=== PATIENT | female | born 1995 | race Caucasian/White ===

== ENCOUNTER 2019-02-26 18:44 | Emergency (ER) | payer BC, OTHER ==
[~2019-02-26] VITALS: Ht 167.6 cm; Wt 85.2 kg
[2019-02-26 19:07] VITALS: Ht 167.6 cm; Wt 85.2 kg
[2019-02-26] MEDS ORDERED: ONDANSETRON 4 MG INJ IV STA (20:49)
[2019-02-26] MEDS ORDERED: SOD CHLORIDE 0.9% 1,000 ML IV STA (20:49)
[2019-02-27] MEDS ORDERED: CEPH-443 PO (00:17)
[2019-02-27] MEDS ORDERED: ONDA4TAB14 PO (00:17)
[2019-02-27 00:28] VITALS: BP 122/81; PULSE 86; RESP 18
--- NOTE | 2019-02-28 00:39 | ERD ---
ER Documentation Chief Complaint Chief Complaint nausea x 1 mo HPI 23 year old G0 F presents to the ED complaining of 1 month of intermittent nausea. No vomiting. She took three home tests which were negative but believes she may be and is requesting a serum beta hcg. She reports intermittent vaginal spotting. LN Dec 16, 2018. Also reports suprapubic and midepigastric abdominal cramping. Has been having urinary frequency and urgency. No back pain, flank pain, fevers or chills. No abnormal vaginal spotting. No other complaints. ROS All systems reviewed and are negative except as per history of present illness. Medications Home Meds Active Scripts Ondansetron (Ondansetron Odt) 4 Mg Tab.rapdis, 4 MG PO Q6H PRN for NAUSEA AND/OR VOMITING, #10 TAB Prov:CORBINIGRIKIANINOCENCIO-C 02/27/19 Cephalexin* (Keflex*) 500 Mg Capsule, 500 MG PO BID for 7 Days, CAP Prov:DISHIGRIKIANINOCENCIO-C 02/27/19 Reported Medications [None] No Conflict Check 04/03/11 Allergies Allergies: Coded Allergies: No Known Allergy (Verified Allergy, Unknown, 04/03/11) PMhx/Soc Medical and Surgical Hx: pt denies Medical Hx, pt denies Surgical Hx History of Surgery: No Anesthesia Reaction: No Hx Neurological Disorder: No Hx Respiratory Disorders: No Hx Cardiac Disorders: No Hx Psychiatric Problems: No Hx Miscellaneous Medical Probl: No Hx Alcohol Use: No Hx Substance Use: No Hx Tobacco Use: No Smoking Status: Never smoker Physical Exam Vitals Vital Signs Date Temp Pulse Resp B/P (MAP) Pulse Ox O2 O2 Flow FiO2 Time Delivery Rate 02/27/19 97.3 86 18 122/81 99 Room Air 00:28 (95) 02/26/19 98.4 100 20 147/93 98 19:07 (111) Physical Exam Const: No acute distress Head: Atraumatic Eyes: Normal Conjunctiva ENT: Normal External Ears, Nose and Mouth. Neck: Full range of motion. No meningismus. Resp: Clear to auscultation bilaterally Cardio: Regular rate and rhythm, no murmurs Abd: Soft, non tender, non distended. No rebound/guarding. Negative Mcburney's point tenderness. Normal bowel sounds. Skin: No petechiae or rashes Back: No midline or flank tenderness Ext: No cyanosis, or edema Neur: Awake and alert Psych: Normal Mood and Affect Result Diagram: 02/26/19212502/26/192125 Results 24 hrs Laboratory Tests Test 02/26/19 21:26 White Blood Count 12.6 10^3/ul Red Blood Count 5.26 10^6/ul Hemoglobin 15.2 g/dl Hematocrit 45.5 % Mean Corpuscular Volume 86.5 fl Mean Corpuscular Hemoglobin 28.9 pg Mean Corpuscular Hemoglobin Concent 33.4 g/dl Red Cell Distribution Width 12.6 % Platelet Count 294 10^3/UL Mean Platelet Volume 11.2 fl Immature Granulocytes % 0.600 % Neutrophils % 57.1 % Lymphocytes % 31.4 % Monocytes % 5.6 % Eosinophils % 4.7 % Basophils % 0.6 % Nucleated Red Blood Cells % 0.0 /100WBC Immature Granulocytes # 0.080 10^3/ul Neutrophils # 7.2 10^3/ul Lymphocytes # 3.9 10^3/ul Monocytes # 0.7 10^3/ul Eosinophils # 0.6 10^3/ul Basophils # 0.1 10^3/ul Nucleated Red Blood Cells # 0.0 10^3/ul Urine Color YELLOW Urine Clarity SLIGHTLY CLOUDY Urine pH 6.0 Urine Specific Opal 1.024 Urine Ketones NEGATIVE mg/dL Urine Nitrite NEGATIVE mg/dL Urine Bilirubin NEGATIVE mg/dL Urine Urobilinogen 2+ mg/dL Urine Leukocyte Esterase TRACE Cynthia/ul Urine Microscopic RBC 3 /HPF Urine Microscopic WBC 1 /HPF Urine Squamous Epithelial Cells FEW /HPF Urine Mucus FEW /HPF Urine Hemoglobin NEGATIVE mg/dL Urine Glucose NEGATIVE mg/dL Urine Total Protein NEGATIVE mg/dl Sodium Level 138 mmol/L Potassium Level 3.9 mmol/L Chloride Level 100 mmol/L Carbon Dioxide Level 27 mmol/L Anion Gap 11 Blood Urea Nitrogen 14 mg/dl Creatinine 0.55 mg/dl Est Glomerular Filtrat Rate mL/min > 60 mL/min Glucose Level 101 mg/dl Calcium Level 9.3 mg/dl Total Bilirubin 0.6 mg/dl Direct Bilirubin 0.00 mg/dl Indirect Bilirubin 0.6 mg/dl Aspartate Amino Transf (AST/SGOT) 42 IU/L Alanine Aminotransferase (ALT/SGPT) 77 IU/L Alkaline Phosphatase 103 IU/L Total Protein 8.3 g/dl Albumin 4.8 g/dl Globulin 3.50 g/dl Albumin/Globulin Ratio 1.37 Beta HCG, Quantitative < 2.4 mIU/ml Current Medications Medications Dose Sig/Jaci Start Time Status Last (Trade) Ordered Route PRN Stop Time Admin Dose Reason Admin Sodium 1,000 ml @ Q1H STAT 02/26/19 DC 02/26/19 Chloride 1,000 mls/hr IV 20:49 21:43 02/26/19 21:48 Ondansetron 4 mg ONCE STAT 02/26/19 DC 02/26/19 HCl (Zofran IV 20:49 21:40 Inj) 02/26/19 20:51 Procedures/MDM LABS CBC: no e/o of systemic infection or severe anemia CMP: no e/o severe acidosis, alkalosis, renal failure, diabetic ketoacidosis, liver disease Urine: + leuk esterase, small amount of hematuria and pyuria Ucx: pending beta hcg: negative Otherwise within normal limits, unremarkable or as documented above. DIAGNOSTIC IMAGING: PROCEDURE: Pelvic ultrasound, limited. CLINICAL INDICATION: Pelvic pain. TECHNIQUE: Multiple sonographic images of the pelvis were obtained utilizing a transabdominal technique. The images were reviewed on a PACS workstation. COMPARISON: None. FINDINGS: The uterus is visualized and measures 8.4 x 3.7 x 4.8 cm. No abnormal uterine mass is identified. The endometrial echo complex is homogeneous and measures 9.8 mm. There is no evidence for free fluid. The right ovary measures 4.2 x 2.4 x 3.8 cm and demonstrates normal flow. The left ovary is not visualized. There is a hypoechoic cyst within the right ovary measuring 1.6 x 1.2 x 1.8 cm. No adnexal masses are identified. IMPRESSION: Right ovarian 1.8 cm cyst. Left ovary not visualized. Otherwise unremarkable pelvic ultrasound. ED COURSE: The patient was given IVFs, Zofran The medication was well tolerated and the patient had market improvement in symptoms. The patient remained stable throughout ED course. MEDICAL DECISION MAKIN yo F presents with nausea, requesting serum beta hcg. Serum beta hcg negative as above. Workup is unremarkable. No evidence of significant infection. Her abd exam is benign. Pelvic US with a right ovarian cyst, otherwise unremarkable. No evidence of torsion. UA with possible UTI, pt is sx therefore will tx with oral abx. Pt felt better status post IVFs and Zofran. She was able to tolerate PO prior to dc. Given copies of results and recommended follow up with PCP or [facility] for further mgmt. Strict return precautions given. PRESCRIPTIONS: Zofran, Keflex SPECIALIST FOLLOW UP RECOMMENDED: OBGYN Departure Diagnosis: Primary Impression: UTI (urinary tract infection) Urinary tract infection type: acute cystitis Hematuria presence: with hematuria Qualified Codes: N30.01 - Acute cystitis with hematuria Additional Impression: Nausea Condition: Stable Patient Instructions: Understanding Urinary Tract Infections (UTIs), Nausea Referrals: [facility] [id number] [facility] [address] [place] [address]LE[address] [place] [address] [facility] [address] [place] [address] [address] MUR[address] [facility] [id number] [facility], [address], [facility] [address] [address] [address] [place] [address] [facility] [address] [place] [address] [facility] [id number] - [address] MENDEZ [address], [facility] [address] [address] E[place]ARNA[place]ION CHONG [address] [facility]. [address], [facility] [address] [place] [address] [place], [place] [id number] [facility] Hours: 8:00 am - 5:00 pm Additional Instructions: Please follow-up with your primary care provider for referral to an [facility]CHANIC. I am also providing you a list of [facility] MECHANIC's as well. You may need to be started on control pills for irregular periods. Take the antibiotics for UTI. He can also take the Zofran if you start to feel nauseous as well. Return here for any new or worsening symptoms. INOCENCIO FRYE PA-C Feb 28, 2019 00:39
== END 2019-02-27 00:35 | disposition home or self-care (01) ==
LOC: FTE 18:44
DX: N30.01 Acute cystitis with hematuria (principal)
CPT/HCPCS: 36415; 76856; 80053; 81001; 84702; 85025; 87086; 96374; J2405; J7030; Z7502